=== PATIENT | female | born 1935 | race Caucasian/White ===

== ENCOUNTER 2017-01-24 18:58 | Emergency (ER) | payer MEDICARE, OTHER ==
[~2017-01-24] VITALS: Ht 160 cm; Wt 72.6 kg
[2017-01-24] MEDS ORDERED: SYMBICORT (19:11)
[2017-01-24] MEDS ORDERED: MECLIZINE 25 MG (19:11)
[2017-01-24] MEDS ORDERED: DEXILANT CAP 60MG DR (19:11)
[2017-01-24] MEDS ORDERED: VIIBRYD 40 MG (19:11)
[2017-01-24] MEDS ORDERED: LORAZEPAM TAB 0.5MG (19:11)
[2017-01-24] MEDS ORDERED: NAMZARIC (19:11)
[2017-01-24] MEDS ORDERED: ROSUVASTATIN 10 MG (19:11)
[2017-01-24] MEDS ORDERED: AMLODIPINE 2.5 MG (19:11)
[2017-01-24] MEDS ORDERED: VESICARE TAB 10MG (19:11)
[2017-01-24] MEDS ORDERED: ESTRADIOL 0.1 MG/GM (19:11)
[2017-01-24] MEDS ORDERED: SILENOR 3 MG (19:11)
[2017-01-24] MEDS ORDERED: ISOSORBIDE MONONITRATE 10 MG (19:11)
[2017-01-24] MEDS ORDERED: IV NORMAL SALINE 500 ML BAG IV ONE (19:30)
[2017-01-24] MEDS ORDERED: MECLIZINE HCL 25 MG TABLET PO ONE (19:30)
[2017-01-24] MEDS ORDERED: ONDANSETRON IV *ER 4 MG/2 ML VIAL IV ONE (19:30)
[2017-01-24] MEDS ORDERED: LORAZEPAM 2 MG/1 ML VIAL IV ONE (19:30)
[2017-01-24] MEDS ORDERED: ONDANSETRON 4 MG/2 ML VIAL ONE (19:31)
[2017-01-24] MEDS ORDERED: LORAZEPAM 2 MG/1 ML VIAL ONE (19:32)
[2017-01-24 19:40] LABS: BASOPHILS % (AUTO) 0.5 % (0.0-2.0); EOSINOPHILS % (AUTO) 0.3 % (0.0-7.0); HEMOGLOBIN 14.2 G/DL (12.0-16.0); LYMPHOCYTES % (AUTO) 22.1 % (20.5-51.5); MEAN CORPUSCULAR HEMOGLOBIN 30.8 UUG (27.0-31.0); MEAN CORPUSCULAR HGB CONC 33 g/dL (32.0-37.0); MEAN CORPUSCULAR VOLUME 93.5 FL (81.0-99.0); MONOCYTES # (AUTO) 0.2 K/UL (0.1-1.30); MONOCYTES % (AUTO) 3.7 % (0.0-11.0); NEUTROPHILS # (AUTO) 3.1 K/UL (1.8-8.9); NEUTROPHILS % (AUTO) 73.4 % (38.5-71.5); PLATELET COUNT (AUTO) 197 K/UL (150-450); WHITE BLOOD COUNT (AUTO) 4.3 K/UL (4.0-11.2)
[2017-01-24] MEDS ORDERED: MECLIZINE HCL 25 MG TABLET ONE (19:45)
[2017-01-24 19:49] LABS: CARBON DIOXIDE 21 mmol/L (21-32); CHLORIDE 100 mmol/L (98-107); CREATININE 0.7 mg/dL (0.6-1.3); GLUCOSE 132 mg/dL (74-106); UREA NITROGEN, BLOOD 8 mg/dL (7-18)
[2017-01-24] MEDS ORDERED: POTASSIUM CHLORIDE 20 MEQ TAB.PRT.SR PO ONE (20:00)
--- NOTE | 2017-01-24 20:15 | NUR ---
PATIENT TOLERATED PO WATER WITH MEDICATIONS, WILL MONITOR.
[2017-01-24] MEDS ORDERED: POTASSIUM CHLORIDE 20 MEQ TAB.PRT.SR ONE (20:25)
[2017-01-24] MEDS ORDERED: MAG HYDROX/AL HYDROX/SIMETH 30 ML LIQUID UDC PO ONE (20:30)
[2017-01-24] MEDS ORDERED: MAG HYDROX/AL HYDROX/SIMETH 30 ML LIQUID UDC ONE (20:39)
--- NOTE | 2017-01-24 20:43 | NUR ---
Patient discharged to home in stable conditon. Written and verbal after care instructions given. Patient verbalizes understanding of instructions. PATIENT LEFT WITH SATBLE GAIT.
[2017-01-24 20:44] VITALS: BP 137/81
== END 2017-01-24 20:44 | disposition home or self-care (01) ==
LOC: ER 18:59
DX: R42 Dizziness and giddiness (principal); R11.2 Nausea with vomiting, unspecified; I10 Essential (primary) hypertension
CPT/HCPCS: 36415; 70030-TC; 85025; 93005; A4663; J2060; J2405; J7040; J8597